=== PATIENT | male | born 1950 | race Caucasian/White ===

== ENCOUNTER 2017-10-12 12:15 | Emergency (ER) | payer OTHER ==
[~2017-10-12] VITALS: Ht 182.9 cm; Wt 80.0 kg
[~2017-10-12 12:15] MED LIST: ACIP20TA19 PO; MAPA325T6 PO
[2017-10-12 12:22] VITALS: BP 146/74; PULSE 84; RESP 18; TEMP 98.7; O2SAT 98
[2017-10-12] MEDS ORDERED: RABE1TAB PO (14:12)
[2017-10-12] MEDS ORDERED: FISHCAP4 PO (14:12)
[2017-10-12] MEDS ORDERED: ALEV220T14 PO (14:12)
[2017-10-12] MEDS ORDERED: CLIN300C5 PO (14:12)
--- NOTE | 2017-10-12 15:20 | RADRPT ---
EXAM DATE/TIME: 10/12/2017 14:58 [place] COMPARISON: No previous studies available for comparison. INDICATIONS : Right knee pain. MEDICAL HISTORY : None. SURGICAL HISTORY : None. ENCOUNTER: Initial ACUITY: 3 days PAIN SCORE: 8/10 LOCATION: Right knee FINDINGS: Four view examination of the right knee demonstrates no evidence of fracture or dislocation. Bony mi neralization is normal. The articular surfaces are intact. The suprapatellar soft tissues have a no rmal configuration. CONCLUSION: Normal examination for a patient of this age. Kamar Burnette MD on October 12, 2017 at 15:18 Board Certified Radiologist. This report was verified electronically.
--- NOTE | 2017-10-12 15:26 | PD ---
HPI Chief Complaint: Musculoskeletal Complaint Time Seen by Provider: 14:09 Travel History International Travel<30 days: No Contact w/Intl Traveler<30days: No Traveled to known affect area: No History of Present Illness HPI This is a 67-year-old male here for evaluation of right knee pain 3 days. He cannot recall specific injury. He denies fever or chills. He reports mild swelling and pain with range of motion of the knee. He is currently being treated for cellulitis of the left foot. He believes he may have been favoring the left leg and somehow injured the right knee. Pain is worse with movement and slightly relieved with rest. Severity is mild to moderate. PFSH Past Medical History Cancer: Yes (PROSTATE, SKIN) Cardiovascular Problems: No COPD: Yes Diabetes: No Endocrine: No Gastrointestinal Disorders: Yes (BARRETTS ESOPHAGUS, GERD) GERD: Yes Genitourinary: No Hepatitis: No Hiatal Hernia: No Immune Disorder: No Musculoskeletal: Yes (HX NECROTIZING FASCIETIS RIGHT ARM) Neurologic: No Psychiatric: No Respiratory: No Radiation Therapy: Yes Thyroid Disease: No Influenza Vaccination: Yes Past Surgical History Abdominal Surgery: Yes (ING. HERNIA REPAIR ) AICD: No Joint Replacement: No Oral Surgery: Yes (DENTAL EXTRACTION) Pacemaker: No Other Surgery: Yes (RIGHT ARM NECROTIZING FASC) Social History Alcohol Use: No Tobacco Use: No Substance Use: No Allergies-Medications (Allergen,Severity, Reaction): Coded Allergies: No Known Allergies (Verified Adverse Reaction, Unknown, 10/12/17) Reported Meds & Prescriptions Reported Meds & Active Scripts Active Reported Clindamycin (Clindamycin HCl) 300 Mg Cap 300 Mg PO Q8HR Aleve Arthritis (Naproxen Sodium) 220 Mg Tab 440 Mg PO DAILY Fish Oil + D3 (Fish Oil-Cholecalciferol) 1,200-1,000 Mg-Unit Cap 1 Cap PO DAILY Rabeprazole (Rabeprazole Sodium) 20 Mg Tab 20 Mg PO DAILY Review of Systems Except as stated in HPI: all other systems reviewed are Neg General / Constitutional: No: Fever Physical Exam Narrative GENERAL: Alert and well-appearing 67-year-old male SKIN: Warm and dry. HEAD: Normocephalic. EYES: No injection or drainage. NECK: Supple CARDIOVASCULAR: Regular rate and rhythm RESPIRATORY: Breath sounds equal bilaterally. No accessory muscle use. GASTROINTESTINAL: Abdomen soft, non-tender, nondistended. MUSCULOSKELETAL: No cyanosis. Right lower extremity: Mild swelling of the right knee. No joint effusion. The joint is stable. Warmth or erythema. 2+ distal pulses. Patient is able to flex and extend the knee without difficulty. Left lower extremity: Cellulitis to the dorsal aspect of the left foot. The area has been marked and the erythema is well within the margins. Patient and family report that the area is looking much improved. Data Data Last Documented VS Vital Signs Date Time Temp Pulse Resp B/P (MAP) Pulse Ox O2 Delivery O2 Flow Rate FiO2 10/12/17 12:22 98.7 84 18 146/74 (98) 98 Orders Orders Knee, Complete (4vws) (10/12/17 ) MDM Medical Decision Making Medical Screen Exam Complete: Yes Emergency Medical Condition: Yes Differential Diagnosis Knee sprain, tendinitis, septic joint very unlikely Narrative Course This is a 67-year-old male with mild right knee pain without specific trauma. He is currently being treated for cellulitis of the left foot. I suspect that he is favoring the left leg and had minor stress/strain to the right knee causing mild swelling. There is no evidence of infection. X-rays negative for bony abnormality. He was instructed to ice and elevate the extremity. Follow- up primary doctor. Return if new or worsening symptoms. Diagnosis Primary Impression: Knee pain Qualified Codes: M25.561 - Pain in right knee Referrals: Primary Care Physician Additional Instructions: Ice and elevate the extremity Harvey wrap as directed. Tylenol or ibuprofen for pain. Return if he developed new or worsening symptoms Disposition: 01 DISCHARGE HOME Condition: Stable Luiza Vora Oct 12, 2017 15:26
== END 2017-10-12 15:55 | disposition home or self-care (01) ==
LOC: PHED 12:15 → PHEFT 15:55
DX: M25.561 Pain in right knee (principal); J44.9 Chronic obstructive pulmonary disease, unspecified; K21.9 Gastro-esophageal reflux disease without esophagitis; X58.XXXA Exposure to other specified factors, initial encounter; Z85.46 Personal history of malignant neoplasm of prostate; Z85.828 Personal history of other malignant neoplasm of skin; Z79.899 Other long term (current) drug therapy
CPT/HCPCS: 73564; 99283